=== PATIENT | female | born 1980 ===

== ENCOUNTER 2025-04-13 23:01 | Emergency (ER) | payer MEDICAID, SELFPAY ==
[2025-04-13 23:01] VITALS: BP 141/92; PULSE 67; RESP 13; TEMP 36.5; O2SAT 96; BMI 42.2
--- NOTE | 2025-04-13 23:03 | USR_ITS ---
PROCEDURE INFORMATION: Exam: US Pelvis, Complete, Non-Obstetric Exam date and time: 04/13/2025 11:30 PM Age: 44 years old Clinical indication: Menstruation abnormalities; Excessive menstruation; Other: Heavy vaginal bleeding since onset of lmp TECHNIQUE: Imaging protocol: Transabdominal pelvic nonobstetric ultrasound. Complete exam. Real time ultrasound with image documentation. COMPARISON: No relevant prior studies available. FINDINGS: Uterus: Uterus is enlarged measuring 14.3 x 7.4 x 6.4 cm. Endometrium is thickened and heterogeneous measuring 2.1 cm. Some fluid in the endometrial cavity, potentially blood products. Large fibroid present measuring 8.1 x 4.1 x 4.5 cm abutting the endometrium, part of which may be submucosal, where there is some vascular flow on color Doppler. Right ovary/adnexa: Ovary is 4.7 x 2.8 x 3.3 cm. No mass. 2.5 cm simple cyst. Normal blood flow. No torsion. Left ovary/adnexa: Ovary is 3.2 x 3.4 x 2.3 cm. No mass. Normal blood flow. No torsion. Intraperitoneal space: No intraperitoneal fluid. Urinary bladder: Unremarkable S. US/US pelv w/transvag [id number] IMPRESSION: 1. Very large uterine fibroid measuring 8.1 cm potentially with submucosal component. Additionally, the endometrium is significantly thickened with some fluid, possibly blood products. Nonemergent contrast-enhanced pelvic MRI would be recommended for additional characterization. 2. No evidence of ovarian torsion.
--- NOTE | 2025-04-13 23:12 | W.ED.GENADLT ---
HPI - General Adult General: Chief complaint: Vaginal Bleeding Stated complaint: vaginal bleeding, abnormal labs Time Seen by Provider: 04/13/25 23:03 Source: patient and EMS Mode of arrival: EMS Limitations: no limitations History of Present Illness: 44-year-old female is here from long-term send history of stroke in the past. Patient states she does have heavy menstruation and has had vaginal bleeding over the last 2 days and long-term tushar and labs that showed hemoglobin of 6.6. Patient denies any increased weakness her blood pressure has been normal. She denies any abdominal pains or fevers. Related Data Allergies Allergy/AdvReac Type Severity Reaction Status Date / Time No Known Allergies Allergy Verified 04/13/25 23:11 Review of Systems : Reports: vaginal bleeding Physical Exam Const: COMMON NORMALS: no acute distress, patient oriented x3 and healthy appearing HENMT: COMMON NORMALS: normocephalic and atraumatic HEAD & SCALP: normocephalic and atraumatic Eye: COMMON NORMALS: conjunctivae normal CONJUNCTIVA: Yes conjunctivae normal Neck/C-Spine: COMMON NORMALS: full ROM and supple Chest: COMMONS NORMALS: normal inspection of the chest and normal palpation of entire chest wall Resp: COMMON NORMALS: normal respiratory effort, No retractions, No use of accessory muscles and clear to auscultation bilaterally AUSCULTATION: clear to auscultation bilaterally Cardio: COMMON NORMALS: regular rate, regular rhythm and No murmurs present (Cardio) RATE: regular rate RHYTHM: regular rhythm GI: COMMON NORMALS: Normal to inspection, nondistended, normoactive bowel sounds present, Soft to palpation, non-tender and no masses PALPATION: Yes Soft to palpation Extremity: COMMON NORMALS: normal to inspection Neuro: COMMON NORMALS: patient oriented x3 Psych: COMMON NORMALS: mental status grossly normal, Normal thought process present and cooperative THOUGHT PROCESS: Normal thought process present Skin: COMMON NORMALS: no rashes or lesions noted and no wounds GENERAL SKIN EXAM: no rashes or lesions noted Course Vital Signs: Vital signs: Vital Signs Temperature 98.2 F 04/14/25 00:33 Pulse Rate 69 04/14/25 00:33 Respiratory Rate 18 04/14/25 00:33 Blood Pressure 114/62 04/14/25 00:33 Pulse Oximetry 96 04/14/25 00:33 Oxygen Delivery Me thod Room Air 04/14/25 00:10 MDM - General Adult Medical Decision Making Patient presents here with vaginal bleeding differential includes ectopic , uterine fibroids, heavy menstruation. Patient is anemic here at 6.6 her blood pressures here have been normal likely is chronically anemic she has history of heavy menstrual periods. Her pelvic ultrasound here did show a large uterine fibroid. She has no heavy active bleeding at this time no signs of infection electrolytes showed no significant abnormalities. Patient already has follow-up with OB on the did give her 1 unit of blood here she is stable for discharge back to the long-term and is to follow-up with OB as scheduled. Did go over labs and ultrasound with her and she understands agrees to plan informed long-term if her vitals worsen or bleeding worsens she is to return Medical Records I reviewed the patient's medical records. Lab Data I reviewed the patient's lab results. 04/13/25 23:08 04/13/25 23:08 Radiology Impressions Pelvic/Transvag US 04/13/25 23:03 IMPRESSION: 1. Very large uterine fibroid measuring 8.1 cm potentially with submucosal component. Additionally, the endometrium is significantly thickened with some fluid, possibly blood products. Nonemergent contrast-enhanced pelvic MRI would be recommended for additional characterization. 2. No evidence of ovarian torsion. ADDENDUM: 04/14/25 0045 There is an additional letter S included under the urinary bladder section of the findings. This may have been inadvertently inserted due to ambient noise or report processing error. Laboratory Results WBC 11.37 10^3/uL (3.29-11.43) 04/13/25 23:08 RBC 2.49 10^6/uL (3.85-5.65) L 04/13/25 23:08 Hgb 6.60 g/dL (11.27-16.99) L 04/13/25 23:08 Hct 21.6 % (36-47) L 04/13/25 23:08 MCV 86.7 fl (85-98) 04/13/25 23:08 MCH 26.5 pg (27-33) L 04/13/25 23:08 MCHC 30.6 g/dL (30-55) 04/13/25 23: RDW 14.9 % (12.1-15.1) 04/13/25 23:08 Plt Count 292 10^3/cmm (157-399) 04/13/25 23:08 MPV 10.3 fL (7.4-10.4) 04/13/25 23:08 Neut % (Auto) 69.4 % 04/13/25 23:08 Lymph % (Auto) 19.2 % 04/13/25 23:08 Saunders % (Auto) 7.8 % 04/13/25 23:08 Eos % (Auto) 3.0 % 04/13/25 23:08 Baso % (Auto) 0.2 % 04/13/25 23:08 Neut # (Auto) 7.90 10^3/uL (1.8-7.7) H 04/13/25 23:08 Lymph # (Auto) 2.2 10^3/uL (0.8-4.8) 04/13/25 23:08 Saunders # (Auto) 0.9 10^3/uL (0.2-0.9) 04/13/25 23:08 Eos # (Auto) 0.3 10^3/uL (0.0-0.8) 04/13/25 23:08 Baso # (Auto) 0.0 10^3/uL (0.0-0.1) 04/13/25 23:08 Nucleated RBC % (auto) 0 % 04/13/25 23:08 Nucleated RBCs # 0.0 /100WBC 04/13/25 23:08 PT 13.00 SECONDS (12.1-14.9) 04/13/25 23:08 INR 0.92 (0.8-1.2) 04/13/25 23:08 Sodium 143 mmol/L (136-145) 04/13/25 23:08 Potassium 4.3 mmol/L (3.5-5.1) 04/13/25 23:08 Chloride 107 mmol/L (98-107) 04/13/25 23:08 Carbon Dioxide 26 mmol/L (22-29) 04/13/25 23:08 Anion Gap 14.3 (5-19) 04/13/25 23:08 BUN 27 mg/dL (6-20) H 04/13/25 23:08 Creatinine 1.6 mg/dL (0.5-0.9) H 04/13/25 23:08 GFR Calculation 34.9 mL/min (90-130) L 04/13/25 23:08 Glucose 106 mg/dL (65-115) 04/13/25 23:08 Calculated Osmolality 302 mOsm/kg (285-295) H 04/13/25 23:08 Calcium 8.5 mg/dL (8.5-10.5) 04/13/25 23:08 Total Bilirubin 0.2 mg/dL (0.15-1.2) 04/13/25 23:08 AST 16 U/L (0-32) 04/13/25 23:08 ALT 10 U/L (0-33) 04/13/25 23:08 Alkaline Phosphatase 85 U/L (35-105) 04/13/25 23:08 Total Protein 7.0 g/dL (6.6-8.7) 04/13/25 23:08 Albumin 3.5 g/dL (3.5-5.2) 04/13/25 23:08 Globulin 3.5 g/dL (1.3-4.6) 04/13/25 23:08 HCG, Qual Negative (Negative) 04/13/25 23:08 Blood Type B Positive 04/13/25 23:08 Rho(D) Type Rh positive 04/13/25 23:08 Antibody Screen Negative 04/13/25 23:08 Crossmatch See Detail 04/13/25 23:08 All radiology interpretation(s) finalized by discharge Discharge Plan Discharge Patient Disposition: Home Clinical Impression: Vaginal bleeding, Fibroid, uterine, Anemia Condition: Stable Discharge Orders: Discharge ED (Routine); Ordered 04/14/25 Ordered By: Keara Colmenares Discharge Diet: Advance as tolerated Discharge Activity: Resume usual activity Patient Instructions: Uterine Fibroids (ED) Print Language: Slovenian Coding Level of Care Code ED Media Sales Executive for Cindy Alcocer
[2025-04-13 23:18] LABS: Hematocrit 21.6 % (36-47); Hemoglobin 6.60 g/dL (11.27-16.99); Mean Corpuscular HGB Conc 30.6 g/dL (30-55); Mean Corpuscular Hemoglobin 26.5 pg (27-33); Mean Corpuscular Volume 86.7 fl (85-98); Nucleated Red Blood Cells % 0 %; Platelet Count 292 10^3/cmm (157-399); Red Blood Count 2.49 10^6/uL (3.85-5.65); White Blood Count 11.37 10^3/uL (3.29-11.43)
[2025-04-13 23:29] LABS: HCG, Serum Qual Negative (Negative)
[2025-04-13 23:30] LABS: INR 0.92 (0.8-1.2); Prothrombin Time 13.00 SECONDS (12.1-14.9)
[2025-04-13 23:35] VITALS: BP 121/68; PULSE 74; O2SAT 99
[2025-04-13 23:35] LABS: Alanine Aminotransferase 10 U/L (0-33); Albumin Level 3.5 g/dL (3.5-5.2); Alkaline Phosphatase 85 U/L (35-105); Anion Gap 14.3 (5-19); Aspartate Amino Transferase 16 U/L (0-32); Blood Urea Nitrogen 27 mg/dL (6-20); Calcium 8.5 mg/dL (8.5-10.5); Carbon Dioxide 26 mmol/L (22-29); Chloride 107 mmol/L (98-107); Creatinine Clr Calc Pharmacy 50.4236; Globulin 3.5 g/dL (1.3-4.6); Glucose 106 mg/dL (65-115); Osmolality Calculated 302 mOsm/kg (285-295); Potassium 4.3 mmol/L (3.5-5.1); Sodium 143 mmol/L (136-145); Total Protein 7.0 g/dL (6.6-8.7)
[2025-04-13 23:45] VITALS: BP 121/68; PULSE 70; O2SAT 99
[2025-04-14] VITALS (18 sets, daily range): BP systolic 114–155; BP diastolic 62–87; PULSE 62–77; RESP 12–24; TEMP 36.7–36.8; O2SAT 95–100
== END 2025-04-14 09:40 | disposition home or self-care (01) ==
PROVIDERS: Emergency Provider Emergency Medicine; PCP Student in an Organized Health Care Education/Training Program
DX: N93.9 Abnormal uterine and vaginal bleeding, unspecified (principal); D25.9 Leiomyoma of uterus, unspecified; D64.9 Anemia, unspecified
CPT/HCPCS: 36415; 36430; 76830; 76856; 80053; 84703; 85025; 85610; 86850; 86900; 86920; 99284; P9016

== ENCOUNTER 2025-05-22 05:31 | Inpatient (IN) | payer MEDICAID, SELFPAY ==
[2025-05-22] VITALS (134 sets, daily range): BP systolic 93–175; BP diastolic 54–104; PULSE 38–93; RESP 8–34; TEMP 36.5–37.2; O2SAT 87–100; BMI 38.6
--- OUTSIDE RECORDS SUMMARY | 2025-05-22 05:36 | XMS_ITS | Clinical Summary ---
Author Organization [facility] Address [address] [phone] Phone Care Team Providers Care Cullet Washer Name Role Phone Unavailable Primary Care Provider Unavailabl e Encounters Date Type Department Care Team Description 05/05/2025 External Device Data [facility] ABSTRACTION Provider, Abstract 04/13/2025 12:50 AM CRISIS NURSE - 04/13/2025 11:59 PM CRISIS NURSE Hospital Encounter [facility] Emergency Medical Services [address] [phone] Ambulance, [facility] Discharge Disposition: [facility] 04/07/2025 External Device Data [facility] ABSTRACTION Provider, Abstract 04/07/2025 External Device Data [facility] ABSTRACTION Provider, Abstract 04/07/2025 External Device Data [facility] ABSTRACTION Provider, Abstract 03/29/2025 12:15 AM CDT - 03/29/2025 11:59 PM CDT Hospital Encounter [facility] Emergency Medical Services [address] [phone] [facility] Discharge Disposition: [facility] from Last 3 Months Social History Tobacco Use Types Packs/Day Years Used Date Smoking Tobacco: Never Assessed Comments Unknown Sex and Gender Information Value Date Recorded Sex Assigned at Not on file Legal Sex Female 11:23 AM CDT Gender Identity Not on file Sexual Orientation Not on file Plan of Treatment Health Maintenance Due Date Last Done Comments DTAP/TDAP/TD VACCINES (1 - Tdap) 1998 HEPATITIS B VACCINES (1 of 3 - 19+ 3-dose series) 07/06 HPV/Cotest (21-29) 2000 CERVICAL CANCER SCREENING 2009 HPV/Cotest (30-65) 2009 PAP SMEAR 2009 BREAST CANCER SCREENING 2019 COLORECTAL SCREENING 2024 Colorectal Cancer Screening 2024 FIT-DNA Q 3 years 2024 FIT/FOBT Q 1 year 2024 Flex Sig/CT Colonography Q 5 years 2024 INFLUENZA VACCINE (#1) 2025 HPV VACCINES (No Doses Required) Completed Insurance [place]ICAID [place]
[2025-05-22 06:07] LABS: Hematocrit 21.0 % (36-47); Mean Corpuscular HGB Conc 28.1 g/dL (30-55); Mean Corpuscular Hemoglobin 21.9 pg (27-33); Mean Corpuscular Volume 78.1 fl (85-98); Nucleated Red Blood Cells % 0 %; Platelet Count 283 10^3/cmm (157-399); Red Blood Count 2.69 10^6/uL (3.85-5.65); White Blood Count 10.71 10^3/uL (3.29-11.43)
[2025-05-22 06:10] LABS: Hemoglobin 5.90 g/dL (11.27-16.99)
[2025-05-22 06:22] LABS: Alanine Aminotransferase 12 U/L (0-33); Albumin Level 3.7 g/dL (3.5-5.2); Alkaline Phosphatase 86 U/L (35-105); Anion Gap 15.0 (5-19); Aspartate Amino Transferase 15 U/L (0-32); Blood Urea Nitrogen 25 mg/dL (6-20); Calcium 8.7 mg/dL (8.5-10.5); Carbon Dioxide 24 mmol/L (22-29); Chloride 105 mmol/L (98-107); Globulin 3.3 g/dL (1.3-4.6); Glucose 88 mg/dL (65-115); Osmolality Calculated 294 mOsm/kg (285-295); Potassium 4.0 mmol/L (3.5-5.1); Sodium 140 mmol/L (136-145); Total Protein 7.0 g/dL (6.6-8.7)
--- NOTE | 2025-05-22 06:24 | W.ED.RECABL ---
HPI - Recheck/Abnormal Lab/Rx General: Chief Complaint: Recheck/Abnormal Lab/Rx Stated Complaint: vaginal bleeding Time Seen by Provider: 05/22/25 05:33 History of Present Illness: 44-year-old female presents emergency room with heavy vaginal bleeding. 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 She presents today after having heavy bleeding for last couple days she still having some bleeding. She is previous set of ultrasound that showed a fibroid. 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 (There is comment in the triage nurses note that the patient has cystic fibrosis. There is no physical exam findings to support this story is very known history from the patient. She has a uterine fibroid.) Related Data Home Medications ?Medication ?Instructions ?Recorded ?Confirmed acetaminophen 325 mg tablet 650 mg PO Q6H PRN pain/fever 05/22/25 05/22/25 amlodipine 10 mg tablet 10 mg PO DAILY 05/22/25 05/22/25 bisacodyl 10 mg rectal suppository 10 mg NV DAILY PRN Constipation 05/22/25 05/22/25 carvedilol 25 mg tablet 25 mg PO BID 05/22/25 05/22/25 docusate sodium 100 mg capsule 200 mg PO BID 05/22/25 05/22/25 (Colace) duloxetine 60 mg capsule,delayed 60 mg PO DAILY 05/22/25 05/22/25 release hydralazine 100 mg tablet 100 mg PO TID 05/22/25 05/22/25 hydrochlorothiazide 25 mg tablet 25 mg PO DAILY 05/22/25 05/22/25 losartan 50 mg tablet 50 mg PO BID 05/22/25 05/22/25 magnesium hydroxide 400 mg/5 mL 30 ml PO DAILY PRN Constipation 05/22/25 05/22/25 oral suspension (Milk of Magnesia) oxycodone 5 mg tablet 5 mg PO Q4H PRN Pain 05/22/25 05/22/25 polyethylene glycol 3350 17 17 g PO DAILY PRN Constipation 05/22/25 05/22/25 gram/dose oral powder (Miralax) potassium chloride 20 mEq 20 meq PO DAILY 05/22/25 05/22/25 tablet,extended release(part/cryst) sennosides 8.6 mg tablet (senna) 17.2 mg PO DAILY PRN Constipation 05/22/25 05/22/25 Previous Rx's ?Medication ?Instructions ?Recorded ferrous sulfate 325 mg (65 mg 325 mg PO EVERY OTHER DAY #90 tabs 05/23/25 iron) tablet tranexamic acid 650 mg tablet 650 mg PO Q8H PRN heavy vaginal 05/23/25 bleeding #15 tabs Allergies Allergy/AdvReac Type Severity Reaction Status Date / Time No Known Allergies Allergy Verified 04/13/25 23:11 Review of Systems Const: Denies: fever(s) or chills Card: Denies: chest pain Resp: Denies: dyspnea GI: Denies: abdominal pain : Reports: vaginal bleeding; Denies: dysuria, urinary frequency or urinary urgency Musc: Denies: neck pain or back pain Skin/Breast: Denies: rash PFSH ED PFSH: Medical History HTN (hypertension) Stroke Surgical History H/O brain surgery History of Social History Smoking and tobacco/nicotine status: never used tobacco/nicotine Alcohol intake: former Substance/Drug Use: never Housing: Detention Number of children: 1 Physical Exam Const: GENERAL APPEARANCE: cooperative ORIENTATION/CONSCIOUSNESS: Yes awake, Yes oriented to person, Yes oriented to place and Yes oriented to time HENMT: COMMON NORMALS: normocephalic, atraumatic and hearing grossly normal bilaterally HEAD & SCALP: normocephalic and atraumatic Resp: COMMON NORMALS: normal respiratory effort, No retractions, No use of accessory muscles and clear to auscultation bilaterally AUSCULTATION: clear to auscultation bilaterally Cardio: COMMON NORMALS: regular rate, regular rhythm and No murmurs present (Cardio) RATE: regular rate RHYTHM: regular rhythm GI: COMMON NORMALS: Soft to palpation and No hepatosplenomegaly present AUSCULTATION: Yes normoactive bowel sounds PALPATION: Yes Soft to palpation, No Tenderness to palpation present (GI), No Guarding due to palpation present (GI) and Yes No hepatosplenomegaly present Extremity: COMMON NORMALS: normal to inspection, capillary refill normal, no clubbing, cyanosis or edema, no calf tenderness and no pedal edema Neuro: SENSORIUM/ORIENTATION: Yes oriented to person, Yes oriented to place and Yes oriented to time OTHER: Difficulty with word finding Skin: COMMON NORMALS: no rashes or lesions noted GENERAL SKIN EXAM: no rashes or lesions noted Course Vital Signs: Vital signs: Vital Signs Temperature 98 F 05/23/25 13:00 Pulse Rate 84 05/23/25 13:00 Respiratory Rate 22 H 05/23/25 13:00 Blood Pressure 170/103 05/23/25 13:00 Pulse Oximetry 99 05/23/25 13:00 Oxygen Delivery Me thod Room Air 05/22/25 18:00 MDM - Recheck/Abnormal Lab/Rx Medical Decision Making Medical decision making Social determinants: Patient previously had stroke, now requires alf level of care no family support available in the emergency room I reviewed the patient's medical record. I reviewed the patient's current home meds. Alternate historians: EMS, alf staff Differential diagnosis: Abnormal uterine bleeding. Lab Review: Hemoglobin 5.9. White count 10.7. Creatinine 1 6 BUN 25. UA shows 11-20 red blood cells no signs of infection. Imaging:None done at this ER visit previous pelvic ultrasound done 1110 reviewed showed large uterine fibroid Assessment of risk Level of risk: High Hospitalization considerations: Hospitalization for severe anemia Reexamination: Vital signs stable, overall unchanged Assessment and plan: Uterine fibroid causing significant both chronic and acute blood loss according to history. Per the alf she has been intermittently transfused for the last several months. She has not had gynecology evaluation yet. Will admit to hospital. Have discussed with gynecology and with hospitalist. Patient was given TXA in the ER. We did not give any estrogen due to her history of previous stroke were trying to get the old records to see if we can determine the etiology of her stroke she is unable to tell me. Noted in her medication list she is not on any antiplatelet therapy. Until able to get the old history hold off on any hormone therapies to help control uterine bleeding. Lab Data 05/23/25 04:06 05/23/25 04:06 Laboratory Results WBC 10.71 10^3/uL (3.29-11.43) 05/22/25 05:52 RBC 2.69 10^6/uL (3.85-5.65) L 05/22/25 05:52 Hgb 5.90 g/dL (11.27-16.99) L* 05/22/25 05:52 Hct 21.0 % (36-47) L 05/22/25 05:52 MCV 78.1 fl (85-98) L 05/22/25 05:52 MCH 21.9 pg (27-33) L 05/22/25 05:52 MCHC 28.1 g/dL (30-55) L 05/22/25 05:52 RDW 18.4 % (12.1-15.1) H 05/22/25 05:52 Plt Count 283 10^3/cmm (157-399) 05/22/25 05:52 MPV 11.0 fL (7.4-10.4) H 05/22/25 05:52 Neut % (Auto) 72.1 % 05/22/25 05:52 Lymph % (Auto) 17.3 % 05/22/25 05:52 Woods % (Auto) 6.6 % 05/22/25 05:52 Eos % (Auto) 3.5 % 05/22/25 05:52 Baso % (Auto) 0.3 % 05/22/25 05:52 Neut # (Auto) 7.73 10^3/uL (1.8-7.7) H 05/22/25 05:52 Lymph # (Auto) 1.9 10^3/uL (0.8-4.8) 05/22/25 05:52 Woods # (Auto) 0.7 10^3/uL (0.2-0.9) 05/22/25 05:52 Eos # (Auto) 0.4 10^3/uL (0.0-0.8) 05/22/25 05:52 Baso # (Auto) 0.0 10^3/uL (0.0-0.1) 05/22/25 05:52 Nucleated RBC % (auto) 0 % 05/22/25 05:52 Nucleated RBCs # 0.0 /100WBC 05/22/25 05:52 Sodium 140 mmol/L (136-145) 05/22/25 05:52 Potassium 4.0 mmol/L (3.5-5.1) 05/22/25 05:52 Chloride 105 mmol/L (98-107) 05/22/25 05:52 Carbon Dioxide 24 mmol/L (22-29) 05/22/25 05:52 Anion Gap 15.0 (5-19) 05/22/25 05:52 BUN 25 mg/dL (6-20) H 05/22/25 05:52 Creatinine 1.6 mg/dL (0.5-0.9) H 05/22/25 05:52 GFR Calculation 34.9 mL/min (90-130) L 05/22/25 05:52 Glucose 88 mg/dL (65-115) 05/22/25 05:52 Calculated Osmolality 294 mOsm/kg (285-295) 05/22/25 05:52 Calcium 8.7 mg/dL (8.5-10.5) 05/22/25 05:52 Iron 13 ug/dL (37-145) L 05/22/25 05:52 TIBC 347 mcg/dl 05/22/25 05:52 % Saturation 3.7 % (20-50) L 05/22/25 05:52 Unsat Iron Binding 334 ug/dL (112-347) 05/22/25 05:52 Ferritin 8 ng/mL (15-150) L 05/22/25 05:52 Total Bilirubin 0.2 mg/dL (0.15-1.2) 05/22/25 05:52 AST 15 U/L (0-32) 05/22/25 05:52 ALT 12 U/L (0-33) 05/22/25 05:52 Alkaline Phosphatase 86 U/L (35-105) 05/22/25 05:52 Total Protein 7.0 g/dL (6.6-8.7) 05/22/25 05:52 Albumin 3.7 g/dL (3.5-5.2) 05/22/25 05:52 Globulin 3.3 g/dL (1.3-4.6) 05/22/25 05:52 Urine Color Yellow (Yellow) 05/22/25 06:51 Urine Appearance Clear (CLEAR) 05/22/25 06:51 Urine pH 5.5 (5-7) 05/22/25 06:51 Ur Specific [place] 1.011 (1.005-1.030) 05/22/25 06:51 Urine Protein Negative (Negative) 05/22/25 06:51 Urine Glucose (UA) Negative (Normal) 05/22/25 06:51 Urine Ketones Negative (Negative) 05/22/25 06:51 Urine Blood 1+ (Negative) A 05/22/25 06:51 Urine Nitrate Negative (Negative) 05/22/25 06:51 Urine Bilirubin Negative (Negative) 05/22/25 06:51 Urine Urobilinogen 0.2 mg/dL (Negative) 05/22/25 06:51 Ur Leukocyte Esterase Negative (Negative) 05/22/25 06:51 Urine RBC 11-20 /hpf (0-2) H 05/22/25 06:51 Urine WBC 0-5 /hpf (0-5) 05/22/25 06:51 Ur Squamous Epith Cells 0-5 /hpf (0-5) 05/22/25 06:51 Amorphous Sediment Not Reportable 05/22/25 06:51 Urine Bacteria None seen /hpf (NONE) 05/22/25 06:51 Hyaline Casts 0-4 /lpf H 05/22/25 06:51 Blood Type B Positive 05/22/25 05:52 Rho(D) Type Rh positive 05/22/25 05:52 Antibody Screen Negative 05/22/25 05:52 Crossmatch See Detail 05/22/25 05:52 No radiology studies performed this visit Discharge Plan Discharge Patient Disposition: Admitted As Inpatient Admit Provider: Swati Dominguez Clinical Impression: Acute on chronic blood loss anemia, Uterine fibroid, History of CVA (cerebrovascular accident) Condition: Stable Discharge Diet: Usual diet Discharge Activity: Increase activity as tolerated Coding Level of Care Code ED Psychology Associate for Cindy Alcocer
[2025-05-22] MEDS: tranexamic acid 1,000 MG/100 ML PREMIX 600 MG IV (07:05)
--- NOTE | 2025-05-22 07:06 | PC.NURSE ---
placed pt on cardiac monitoring, educated pt on pending blood admin. denies any further needs at this time.
--- NOTE | 2025-05-22 07:52 | PC.PHAR ---
Pt is from [facility]. Pt was transported prior to morning meds today 05/22/25
[2025-05-22 08:00] LABS: Add Urine Microscopic? YES; Glucose Urine UA Negative (Normal); Nitrate Urine Negative (Negative); Specific Gravity, Urine 1.011 (1.005-1.030)
--- NOTE | 2025-05-22 08:24 | PM.CONSULT ---
Providers/Reason For Consult Consulting Physician/Specialty*: Hospitalist Reason for Consult*: Vaginal bleeding, unknown history of stroke, renal disease Primary Care Provider: Shamar Faith History of Present Illness History of Present Illness Sarah Stiles is a 44 year old female a alf resident, presents with recurrent vaginal bleeding. She reports episodes occurring frequently with intermittent weeks without bleeding; over the last five days the bleeding has been worse. She uses diapers rather than pads and changes frequency depends on whether she can make it to the bathroom due to difficulty walking. She denies taking blood thinners and does not take clopidogrel (Plavix). She reports receiving aspirin from the alf. History notable for a stroke in October with chronic right-sided weakness. She acknowledges a history of high blood pressure and takes daily medications at the alf but cannot recall names. She denies knowing of kidney disease. She reports no medication allergies. She has a cousin, Thuy, as a local contact, while other family lives in [place]. She reports prior section and one living child. She denies smoking, endorses past alcohol use, and denies recreational drug use. She states a gynecology visit occurred and that surgery was discussed for June 08. Review of Systems Const: Denies: fever(s), chills, body aches or malaise ENMT: Denies: throat pain Card: Denies: chest pain, edema, pre-syncope or dyspnea on exertion Resp: Denies: dyspnea, productive cough, change in phlegm color or hemoptysis GI: Denies: abdominal pain, nausea, vomiting, diarrhea, constipation, hematochezia or melena : Reports: vaginal bleeding; Denies: flank pain, urinary frequency or hematuria Musc: Denies: back pain, joint swelling or joint redness Skin/Breast: Denies: rash or new lesions Neuro: Denies: headache(s) or confusion Medications/Allergies Home Medications ?Medication ?Instructions ?Recorded ?Confirmed ?Last Taken ?Type acetaminophen 325 mg tablet 650 mg PO Q6H PRN pain/fever 05/22/25 05/22/25 Unknown History amlodipine 10 mg tablet 10 mg PO DAILY 05/22/25 05/22/25 05/21/25 History bisacodyl 10 mg rectal suppository 10 mg NC DAILY PRN Constipation 05/22/25 05/22/25 Unknown History carvedilol 25 mg tablet 25 mg PO BID 05/22/25 05/22/25 05/21/25 History docusate sodium 100 mg capsule 200 mg PO BID 05/22/25 05/22/25 05/21/25 History (Colace) duloxetine 60 mg capsule,delayed 60 mg PO DAILY 05/22/25 05/22/25 05/21/25 History release hydralazine 100 mg tablet 100 mg PO TID 05/22/25 05/22/25 05/21/25 History hydrochlorothiazide 25 mg tablet 25 mg PO DAILY 05/22/25 05/22/25 05/21/25 History losartan 50 mg tablet 50 mg PO BID 05/22/25 05/22/25 05/21/25 History magnesium hydroxide 400 mg/5 mL 30 ml PO DAILY PRN Constipation 05/22/25 05/22/25 Unknown History oral suspension (Milk of Magnesia) oxycodone 5 mg tablet 5 mg PO Q4H PRN Pain 05/22/25 05/22/25 Unknown History polyethylene glycol 3350 17 17 g PO DAILY PRN Constipation 05/22/25 05/22/25 Unknown History gram/dose oral powder (Miralax) potassium chloride 20 mEq 20 meq PO DAILY 05/22/25 05/22/25 05/21/25 History tablet,extended release(part/cryst) sennosides 8.6 mg tablet (senna) 17.2 mg PO DAILY PRN Constipation 05/22/25 05/22/25 Unknown History Allergies Allergy/AdvReac Type Severity Reaction Status Date / Time No Known Allergies Allergy Verified 04/13/25 23:11 PFSH Acute PFSH: Medical History HTN (hypertension) Stroke Surgical History H/O brain surgery History of Social History (Updated 05/22/25 @ 08:41 by Dionisio Guzman MD) Smoking and tobacco/nicotine status: never used tobacco/nicotine Alcohol intake: former Substance/Drug Use: never Housing: [facility] Number of children: 1 Vitals/I&O/Wt Last Vital Signs Temp 97.8 F 05/22/25 07:53 Pulse 73 05/22/25 07:53 Resp 19 H 05/22/25 07:53 BP 125/77 05/22/25 07:53 Pulse Ox 100 05/22/25 07:53 O2 Del Method Room Air 05/22/25 07:06 05/21/25 05/22/25 05/22/25 22:59 06:59 14:59 Intake Total 100 / 100 Balance 100 / 100 Weight last 48 hrs Weight 102.058 kg Physical Exam Const: COMMON NORMALS: patient oriented x3 and alert GENERAL APPEARANCE: cooperative ORIENTATION/CONSCIOUSNESS: Yes awake HENMT: COMMON NORMALS: oropharynx normal Neck/C-Spine: COMMON NORMALS: no JVD Resp: COMMON NORMALS: normal respiratory effort and clear to auscultation bilaterally AUSCULTATION: clear to auscultation bilaterally Cardio: COMMON NORMALS: no JVD, regular rhythm, S1 normal heart sound present, S2 normal heart sound present and No murmurs present (Cardio) RHYTHM: regular rhythm HEART SOUNDS: S1 normal heart sound present and S2 normal heart sound present GI: COMMON NORMALS: Normal to inspection, nondistended, normoactive bowel sounds present, Soft to palpation and non-tender PALPATION: Yes Soft to palpation Extremity: COMMON NORMALS: no joint enlargement NARRATIVE EXTREMITY EXAM: RLE chronically more swollen Neuro: COMMON NORMALS: patient oriented x3 and moves all extremities SENSORIUM/ORIENTATION: Yes alert OTHER: R side upper and lower weakness Skin: COMMON NORMALS: no rashes or lesions noted GENERAL SKIN EXAM: no rashes or lesions noted Data 05/22/25 05:52 05/22/25 05:52 A&P Assessment and plan 1. Vaginal bleeding: Recurrent bleeding with recent five-day worsening; patient uses diapers. Gynecology has been evaluating her, she states surgery was discussed for June 08. Bleeding in the setting of large uterine fibroid. Reviewed vitals, CBC, UA, ED provider note, discussed with gynecology, ED provider. Receiving 2 units RBC transfusion. Follow-up hemoglobin 2 hours ultrasound transfusion. Monitor for risk of reaction, fluid overload. - Pending gynecology evaluation - No surgery planned during this hospitalization; tentative surgery discussed for June 08 per patient report 2. Fibroid, uterine: Further plans by gynecology with regards to surgical management. 3. Anemia: Acute blood loss anemia. States has been having ongoing bleeding for a while which had let up somewhat for close to about a month, but has gotten particularly bad in the last 5 days. Iron studies. Plan: History of CVA: In context of vaginal bleeding with anemia as above, hold aspirin. Creatinine elevation: Possible CKD, creatinine 1.6, noted 1.6 back in April as well. Reviewed UA. Repeat chemistry. Hypertension : Known history; patient takes daily antihypertensive medication at the alf but cannot recall names. Hold off for now with vaginal bleeding, acute anemia, reassess blood pressure. Will resume antihypertensive depending on blood pressures. PDMP PDMP Reviewed: Not Reviewed and High MDM includes amount and/or complexity of data reviewed/ordered [ previous or external records, resulted lab(s)/test(s), ordered lab(s)/test(s) and other healthcare professional discussion] and described risk of complication, morbidity or mortality of management as documented Diagnoses Vaginal bleeding N93.9 Fibroid, uterine D25.9 Anemia D64.9
--- NOTE | 2025-05-22 09:10 | PC.NURSE ---
report given to SHELLI Freeman @[id number]; Lydia assumed care at this time.
--- NOTE | 2025-05-22 09:30 | PC.NURSE ---
2nd unit of blood to be given on the floor per provider
[2025-05-22 13:46] LABS: Ferritin 8 ng/mL (15-150); Iron 13 ug/dL (37-145); Total Iron Binding Capacity 347 mcg/dl; Unsaturated Iron Binding 334 ug/dL (112-347)
--- NOTE | 2025-05-22 14:09 | PM.OBGYHP ---
Providers/Chief Complaint Admitting Physician: Swati Dominguez MD Primary Care Provider: Shamar Faith Chief Complaint: vaginal bleeding HPI [employer] History of Present Illness Sarah Stiles is a 44 year old female who comes from [facility] with heavy vaginal bleeding. She is difficult historian due to her stroke/memory issues. She reports periods monthly but at some point mostly everyday but can go off for days also. Some things are days ago to years ago, so not sure on timing. But she was here for similar episode a month ago and transfused. Has FITTER HAND in [place] in June. This is late entry, seen ans examined at 1120. Present Details Date of Last Menstrual Period: 05/15/25 Calculated Date of Delivery: 02/19/26 Gestational Age Based on Last Menstrual Period: 1 Review of Systems Narrative: Pertinent positives listed in HPI: Const: Denies: fever(s) or chills Card: Denies: chest pain, palpitations or syncope Resp: Denies: SOB, cough GI: Denies: abdominal pain, nausea or vomiting : Denies: flank pain, dysuria or urinary frequency Musc: Denies: back pain or extremity swelling Skin/Breast: Denies: rash, pruritus or breast pain Neuro: Denies: headache(s) or dizziness Psych: Denies: depression or mood swings Endo: Denies: polyuria, cold or heat intolerance Tha/Lymph: Denies: easy bruising or easy bleeding Medications/Allergies Home Medications ?Medication ?Instructions ?Recorded ?Confirmed ?Last Taken ?Type acetaminophen 325 mg tablet 650 mg PO Q6H PRN pain/fever 05/22/25 05/22/25 Unknown History amlodipine 10 mg tablet 10 mg PO DAILY 05/22/25 05/22/25 05/21/25 History bisacodyl 10 mg rectal suppository 10 mg [place] DAILY PRN Constipation 05/22/25 05/22/25 Unknown History carvedilol 25 mg tablet 25 mg PO BID 05/22/25 05/22/25 05/21/25 History docusate sodium 100 mg capsule 200 mg PO BID 05/22/25 05/22/25 05/21/25 History (Colace) duloxetine 60 mg capsule,delayed 60 mg PO DAILY 05/22/25 05/22/25 05/21/25 History release hydralazine 100 mg tablet 100 mg PO TID 05/22/25 05/22/25 05/21/25 History hydrochlorothiazide 25 mg tablet 25 mg PO DAILY 05/22/25 05/22/25 05/21/25 History losartan 50 mg tablet 50 mg PO BID 05/22/25 05/22/25 05/21/25 History magnesium hydroxide 400 mg/5 mL 30 ml PO DAILY PRN Constipation 05/22/25 05/22/25 Unknown History oral suspension (Milk of Magnesia) oxycodone 5 mg tablet 5 mg PO Q4H PRN Pain 05/22/25 05/22/25 Unknown History polyethylene glycol 3350 17 17 g PO DAILY PRN Constipation 05/22/25 05/22/25 Unknown History gram/dose oral powder (Miralax) potassium chloride 20 mEq 20 meq PO DAILY 05/22/25 05/22/25 05/21/25 History tablet,extended release(part/cryst) sennosides 8.6 mg tablet (senna) 17.2 mg PO DAILY PRN Constipation 05/22/25 05/22/25 Unknown History Allergies Allergy/AdvReac Type Severity Reaction Status Date / Time No Known Allergies Allergy Verified 04/13/25 23:11 PFSH [employer] PFSH: Medical History HTN (hypertension) Stroke Surgical History H/O brain surgery History of Social History (Updated 05/22/25 @ 08:41 by Dionisio Guzman MD) Smoking and tobacco/nicotine status: never used tobacco/nicotine Alcohol intake: former Substance/Drug Use: never Housing: [facility] Number of children: 1 Vitals/I&O/Wt Last Vital Signs Temp 97.9 F 05/22/25 13:40 Pulse 82 05/22/25 13:45 Resp 19 H 05/22/25 13:45 BP 145/92 05/22/25 13:45 Pulse Ox 99 05/22/25 13:45 O2 Del Method Room Air 05/22/25 13:40 05/21/25 05/22/25 05/22/25 22:59 06:59 14:59 Intake Total 450 / 450 Balance 450 / 450 Weight last 48 hrs Weight 248 lb 0.321 oz Weight 225 lb Physical Exam Narrative: Appearance: grossly normal Attitude: calm and engaged, appropriate eye contact Const: no acute distress, oriented x3 cooperative Chest: Symmetrical chest wall rise Resp: normal respiratory effort, clear to auscultation bilaterally Cardio: regular rate and regular rhythm GI: Soft to palpation, Non Tender, no Guarding, no masses : No Uterine tenderness, cervix normal appearing, vagina no masses, urethra normal Extremity: normal inspection, negative for no pedal edema Neuro: oriented x3 and moves all extremities, speech normal Psych: mental status grossly normal, and Normal thought process present Skin: no rashes or lesions noted Data 05/22/25 05:52 05/22/25 05:52 Results Labs OB ([facility]): Blood Type B Positive Today Antibody Screen Negative Today Hct, (36-47) 21.0 % L Today Hgb, (11.27-16.99) 5.90 g/dL L* Today Rho(D) Type Rh positive Today Plt Count, (157-399) 283 10^3/cmm Today HCG, Qual, (Negative) Negative 04/13/25 A&P Assessment and plan 1. Vaginal bleeding: Late entry. Will get office supplies to attempt EMB, was stable and not bleeding but scant when in ER. Goal is transfusion, obtain sample and aid her future surgery which is likely hysterectomy. 2. Fibroid, uterine: 3. Anemia: PDMP PDMP Reviewed: Not Reviewed Attestations Medical Necessity Statement*: Needs stable, not sure how long that will be from transfusuion and bleeding issues. Coding Level of Care Code Acute Code for Chg Fwd Diagnoses Vaginal bleeding N93.9 Fibroid, uterine D25.9 Anemia D64.9
--- NOTE | 2025-05-22 14:32 | PM.ACPR ---
Procedure/Consent Consent: Consent for Procedure: Consent obtained from patient, Risks & Benefits reviewed and Agrees to proceed with procedure Procedure Narrative: Endometrial biopsy. Dr Dominguez, assisted by staff due to CVA paralysis. Speculum placed, cervix seen, 20 cc clot cleared. Pipelle placed sample #1 small, second pass with >10 cm depth, large endometrial sample obtained. Patient tolerated well.
--- NOTE | 2025-05-22 15:46 | PC.NURSE ---
Received patient from ER staff at 1320. Patient is alert. Oriented to person, place, time, and situation. Has a brief on which was checked upon arrival, scant amount of dried speckled blood. Brief removed to allow quicker observation of new bleeding. No active bleeding observed at this time. Report states that patient has right sided paralysis due to previous stroke, but some movement is preserved. Patient is capable of transferring to a bedside commode with minimal 1 person assistance. BP: 126/82 HR: 71 RR: 18 SPO2: 99 Temp 97.9
--- NOTE | 2025-05-22 19:28 | PC.NURSE ---
SHift SUmmary: Uneventful shift. Has received a total of 3 units of blood today. Uterine biopsy taken without complication. Vitals remain within normal limits. No evidence of vaginal bleeding since arrival in ICU.
[2025-05-22 21:30] LABS: Hematocrit 32.7 % (36-47); Hemoglobin 9.60 g/dL (11.27-16.99)
[2025-05-23] VITALS (20 sets, daily range): BP systolic 148–197; BP diastolic 88–122; PULSE 56–84; RESP 15–32; TEMP 36.6; O2SAT 96–100
[2025-05-23 04:44] LABS: Hematocrit 31.7 % (36-47); Hemoglobin 9.60 g/dL (11.27-16.99); Mean Corpuscular HGB Conc 30.3 g/dL (30-55); Mean Corpuscular Hemoglobin 24.4 pg (27-33); Mean Corpuscular Volume 80.7 fl (85-98); Nucleated Red Blood Cells % 0 %; Platelet Count 294 10^3/cmm (157-399); Red Blood Count 3.93 10^6/uL (3.85-5.65); White Blood Count 11.50 10^3/uL (3.29-11.43)
[2025-05-23 05:02] LABS: Blood Urea Nitrogen 20 mg/dL (6-20); Calcium 9.1 mg/dL (8.5-10.5); Carbon Dioxide 25 mmol/L (22-29); Chloride 102 mmol/L (98-107); Glucose 86 mg/dL (65-115); Osmolality Calculated 288 mOsm/kg (285-295); Sodium 138 mmol/L (136-145)
[2025-05-23 05:11] LABS: Anion Gap 14.7 (5-19); Potassium 3.7 mmol/L (3.5-5.1)
--- NOTE | 2025-05-23 08:50 | PM.OBGYDC ---
Discharge Providers PLASTIC SURGEON Date of Admission: 05/22/25 09:10 Date of Discharge: 05/23/25 Attending Provider at Admission: Swati Dominguez MD Attending Provider at Discharge: Swati Dominguez MD Primary Care Provider: Shamar Faith Diagnoses at Discharge Discharge Diagnosis 1. Vaginal bleedin. Fibroid, uterine: 3. Anemia: Reason for Visit Reason for Visit: vaginal bleeding Hospital Course Hospital Course Admitted for heavy vaginal bleeding with fibroid uterus. Her hx of hemorrhagic CVA without known cause led to treatment with TXA that was sucessful. She had 3 units of PRBCs and bleeding was scant to none. An endometrial biopsy was sent. Patient discharged the next day with Rx for TXA for next episode of bleeding. She has an appointment in [place] with LINKING MACHINE OPERATOR in June. Hospitalist service mangaed chronic medical issues. She was in an ICU bed due to lack of bed on med surg unit. Physical Exam Narrative: Appearance: grossly normal Attitude: calm and engaged, appropriate eye contact Const: no acute distress, oriented x3 cooperative Chest: Symmetrical chest wall rise Resp: normal respiratory effort, clear to auscultation bilaterally Cardio: regular rate and regular rhythm GI: Soft to palpation, Non Tender, no Guarding, no masses : No bleeding visiblel Extremity: normal inspection, + pedal edema Psych: mental status grossly normal, and Normal thought process present Skin: no rashes or lesions noted Discharge Data Studies Completed and Pending Pending at discharge Category Date Time Status Basic Metabolic Panel AM LABS Lab 05/24/25 04:00 Ordered Basic Metabolic Panel AM LABS Lab 05/25/25 04:00 Ordered Complete Blood Count w/Auto AM LABS Lab 05/24/25 04:00 Ordered Complete Blood Count w/Auto AM LABS Lab 05/25/25 04:00 Ordered Leukocyte Reduced RBC Stat Lab 05/22/25 05:52 Results Type and Screen Stat Lab 05/22/25 05:52 Results Pathology: Surgical [PTH] Routine Pth 05/22/25 14:34 Received Laboratory Results WBC 11.50 10^3/uL (3.29-11.43) H 05/23/25 04:06 RBC 3.93 10^6/uL (3.85-5.65) 05/23/25 04:06 Hgb 9.60 g/dL (11.27-16.99) L 05/23/25 04:06 Hct 31.7 % (36-47) L 05/23/25 04:06 MCV 80.7 fl (85-98) L 05/23/25 04:06 MCH 24.4 pg (27-33) L D 05/23/25 04:06 MCHC 30.3 g/dL (30-55) D 05/23/25 04:06 RDW 17.8 % (12.1-15.1) H 05/23/25 04:06 Plt Count 294 10^3/cmm (157-399) 05/23/25 04:06 MPV 11.4 fL (7.4-10.4) H 05/23/25 04:06 Neut % (Auto) 73.2 % 05/23/25 04:06 Lymph % (Auto) 17.0 % 05/23/25 04:06 [place] % (Auto) 6.3 % 05/23/25 04:06 Eos % (Auto) 2.9 % 05/23/25 04:06 Baso % (Auto) 0.3 % 05/23/25 04:06 Neut # (Auto) 8.41 10^3/uL (1.8-7.7) H 05/23/25 04:06 Lymph # (Auto) 2.0 10^3/uL (0.8-4.8) 05/23/25 04:06 [place] # (Auto) 0.7 10^3/uL (0.2-0.9) 05/23/25 04:06 Eos # (Auto) 0.3 10^3/uL (0.0-0.8) 05/23/25 04:06 Baso # (Auto) 0.0 10^3/uL (0.0-0.1) 05/23/25 04:06 Nucleated RBC % (auto) 0 % 05/23/25 04:06 Nucleated RBCs # 0.0 /100WBC 05/23/25 04:06 Sodium 138 mmol/L (136-145) 05/23/25 04:06 Potassium 3.7 mmol/L (3.5-5.1) 05/23/25 04:06 Chloride 102 mmol/L (98-107) 05/23/25 04:06 Carbon Dioxide 25 mmol/L (22-29) 05/23/25 04:06 Anion Gap 14.7 (5-19) 05/23/25 04:06 BUN 20 mg/dL (6-20) 05/23/25 04:06 Creatinine 1.6 mg/dL (0.5-0.9) H 05/23/25 04:06 GFR Calculation 34.9 mL/min (90-130) L 05/23/25 04:06 Glucose 86 mg/dL (65-115) 05/23/25 04:06 Calculated Osmolality 288 mOsm/kg (285-295) 05/23/25 04:06 Calcium 9.1 mg/dL (8.5-10.5) 05/23/25 04:06 Iron 13 ug/dL (37-145) L 05/22/25 05:52 TIBC 347 mcg/dl 05/22/25 05:52 % Saturation 3.7 % (20-50) L 05/22/25 05:52 Unsat Iron Binding 334 ug/dL (112-347) 05/22/25 05:52 Ferritin 8 ng/mL (15-150) L 05/22/25 05:52 Total Bilirubin 0.2 mg/dL (0.15-1.2) 05/22/25 05:52 AST 15 U/L (0-32) 05/22/25 05:52 ALT 12 U/L (0-33) 05/22/25 05:52 Alkaline Phosphatase 86 U/L (35-105) 05/22/25 05:52 Total Protein 7.0 g/dL (6.6-8.7) 05/22/25 05:52 Albumin 3.7 g/dL (3.5-5.2) 05/22/25 05:52 Globulin 3.3 g/dL (1.3-4.6) 05/22/25 05:52 Urine Color Yellow (Yellow) 05/22/25 06:51 Urine Appearance Clear (CLEAR) 05/22/25 06:51 Urine pH 5.5 (5-7) 05/22/25 06:51 Ur Specific [place] 1.011 (1.005-1.030) 05/22/25 06:51 Urine Protein Negative (Negative) 05/22/25 06:51 Urine Glucose (UA) Negative (Normal) 05/22/25 06:51 Urine Ketones Negative (Negative) 05/22/25 06:51 Urine Blood 1+ (Negative) A 05/22/25 06:51 Urine Nitrate Negative (Negative) 05/22/25 06:51 Urine Bilirubin Negative (Negative) 05/22/25 06:51 Urine Urobilinogen 0.2 mg/dL (Negative) 05/22/25 06:51 Ur Leukocyte Esterase Negative (Negative) 05/22/25 06:51 Urine RBC 11-20 /hpf (0-2) H 05/22/25 06:51 Urine WBC 0-5 /hpf (0-5) 05/22/25 06:51 Ur Squamous Epith Cells 0-5 /hpf (0-5) 05/22/25 06:51 Amorphous Sediment Not Reportable 05/22/25 06:51 Urine Bacteria None seen /hpf (NONE) 05/22/25 06:51 Hyaline Casts 0-4 /lpf H 05/22/25 06:51 Blood Type B Positive 05/22/25 05:52 Rho(D) Type Rh positive 05/22/25 05:52 Antibody Screen Negative 05/22/25 05:52 Crossmatch See Detail 05/22/25 05:52 Vitals Last Vital Signs Temp 97.9 F 05/22/25 18:00 Pulse 65 05/23/25 04:30 Resp 21 H 05/23/25 04:30 BP 150/104 05/23/25 04:30 Pulse Ox 98 05/23/25 04:30 O2 Del Method Room Air 05/22/25 18:00 Results Labs OB ([facility]): Blood Type B Positive 05/22/25 Antibody Screen Negative 05/22/25 Hct, (36-47) 31.7 % L Today Hgb, (11.27-16.99) 9.60 g/dL L Today Rho(D) Type Rh positive 05/22/25 Plt Count, (157-399) 294 10^3/cmm Today HCG, Qual, (Negative) Negative 04/13/25 Discharge Plan Discharge Patient Disposition: Home Condition: Stable Prescriptions: New tranexamic acid 650 mg tablet 650 mg PO Q8H PRN (Reason: heavy vaginal bleeding) Qty: 15 0RF Rx Instructions: Give if patient has heavy menses. Continued losartan 50 mg tablet 50 mg PO BID carvedilol 25 mg tablet 25 mg PO BID sennosides [senna] 8.6 mg Tablet 17.2 mg PO DAILY PRN (Reason: Constipation) acetaminophen 325 mg Tablet 650 mg PO Q6H PRN (Reason: pain/fever) potassium chloride 20 mEq tablet,ER particles/crystals 20 meq PO DAILY magnesium hydroxide [Milk of Magnesia] 400 mg/5 mL Suspension 30 ml PO DAILY PRN (Reason: Constipation) amlodipine 10 mg tablet 10 mg PO DAILY bisacodyl 10 mg Suppository 10 mg SD DAILY PRN (Reason: Constipation) hydralazine 100 mg tablet 100 mg PO TID docusate sodium [Colace] 100 mg Capsule 200 mg PO BID hydrochlorothiazide 25 mg tablet 25 mg PO DAILY polyethylene glycol 3350 [Miralax] 17 gram/dose Powder 17 g PO DAILY PRN (Reason: Constipation) oxycodone 5 mg Tablet 5 mg PO Q4H PRN (Reason: Pain) duloxetine 60 mg capsule,delayed release(DR/EC) 60 mg PO DAILY Discharge Order = DC NOW: Discharge Order (Routine); Ordered 05/23/25 Ordered By: Hansel Ann Referrals: Shamar Faith [Primary Care Provider, Internal Medicine] Discharge Diet: Usual diet Discharge Activity: Increase activity as tolerated Patient Instructions: Opioid Safety, Patient Portal & Aletha Instructions Activity Restrictions/Additional Instructions: Follow up with LINKING MACHINE OPERATOR as scheduled in [place] Discharge Attestations PLASTIC SURGEON Time Spent in Discharge Care*: less than 30 min Coding Level of Care Code Acute Code for Chg Fwd Diagnoses Vaginal bleeding N93.9 Fibroid, uterine D25.9 Anemia D64.9
--- NOTE | 2025-05-23 11:18 | P.PN_ITS ---
Subjective 2 Subjective: Denies any new symptoms today. Not in pain or discomfort and states she is doing all right. Vitals/I&O/Wt Last Vital Signs Temp 97.9 F 05/22/25 18:00 Pulse 72 05/23/25 10:00 Resp 23 H 05/23/25 10:00 BP 172/122 05/23/25 10:00 Pulse Ox 96 05/23/25 08:00 O2 Del Method Room Air 05/22/25 18:00 05/22/25 05/23/25 05/23/25 22:59 06:59 14:59 Intake Total 1000 / 1800 240 / 2040 480 / 480 Output Total 500 / 500 Balance 500 / 1300 240 / 1540 480 / 480 Weight last 48 hrs Weight 117.5 kg Weight 112.5 kg Weight 102.058 kg Physical Exam 2 Const: COMMON NORMALS: patient oriented x3 and alert GENERAL APPEARANCE: c ooperative ORIENTATION/CONSCIOUSNESS: Yes awake HENMT: COMMON NORMALS: oropharynx normal Neck/C-Spine: COMMON NORMALS: no JVD Resp: COMMON NORMALS: normal respiratory effort and clear to auscultation bilaterally AUSCULTATION: clear to auscultation bilaterally Cardio: COMMON NORMALS: no JVD, regular rhythm, S1 normal heart sound present, S2 normal heart sound present and No murmurs present (Cardio) RHYTHM: regular rhythm HEART SOUNDS: S1 normal heart sound present and S2 normal heart sound present GI: COMMON NORMALS: Normal to inspection, nondistended, normoactive bowel sounds present, Soft to palpation and non-tender PALPATION: Yes Soft to palpation Extremity: COMMON NORMALS: no joint enlargement NARRATIVE EXTREMITY EXAM: RLE chronically more swollen Neuro: COMMON NORMALS: patient oriented x3 and moves all extremities S ENSORIUM/ORIENTATION: Yes alert OTHER: R side upper and lower weakness Skin: COMMON NORMALS: no rashes or lesions noted GENERAL SKIN EXAM: no rashes or lesions noted Data 05/23/25 04:06 05/23/25 04:06 A&P Assessment and plan 1. Vaginal bleeding: Reviewed gynecology note, underwent biopsy. Discharging per gynecology to follow-up as outpatient. She reports she takes aspirin 500 mg for aches and pains. Discussed with her to discontinue this due to blood loss anemia. Recurrent bleeding with recent five-day worsening; patient uses diapers. Gynecology has been evaluating her, she states surgery was discussed for June 08. Bleeding in the setting of large uterine fibroid. Received 2 units RBC transfusion. 2. Fibroid, uterine: Further plans by gynecology with regards to surgical management. 3. Anemia: Acute blood loss anemia. States has been having ongoing bleeding for a while which had let up somewhat for close to about a month, but has gotten particularly bad in the last 5 days. Iron deficiency anemia - iron supplementation. Plan: History of CVA: She reports aspirin she takes is 500 mg strength for aches and pains. Discussed to discontinue. She states had history of hemorrhagic stroke, but she will confirm with her primary provider. Creatinine elevation: Follow-up CKD with primary provider. Hypertension : Resume home medications. PDMP PDMP Reviewed: Not Reviewed Attestations 2 Medical Necessity Statement*: Returning to nursing facility. and High MDM includes amount and/or complexity of data reviewed/ordered [ previous or external records, resulted lab(s)/test(s), ordered lab(s)/test(s) and other healthcare professional discussion] as documented Diagnoses Vaginal bleeding N93.9 Fibroid, uterine D25.9 Anemia D64.9
--- NOTE | 2025-05-23 12:11 | PC.NURSE ---
report called to heather at [facility] for discharge transport called
== END 2025-05-23 13:00 | disposition intermediate care facility (04) | DRG 952 ==
LOC: ER 06:25 → ICU 12:56
PROVIDERS: Internal Medicine; Admitting Provider Obstetrics & Gynecology; Emergency Provider Family Medicine; PCP Student in an Organized Health Care Education/Training Program; Visit Provider Obstetrics & Gynecology
DX: D62 Acute posthemorrhagic anemia (principal); D25.9 Leiomyoma of uterus, unspecified; N93.9 Abnormal uterine and vaginal bleeding, unspecified; D50.9 Iron deficiency anemia, unspecified; R94.4 Abnormal results of kidney function studies; I69.2 Sequelae of other nontraumatic intracranial hemorrhage; I10 Essential (primary) hypertension; Z79.82 Long term (current) use of aspirin
CPT/HCPCS: 36415; 36430; 80048; 80053; 81001; 82728; 83540; 83550; 85014; 85018; 85025; 86850; 86900; 86920; 88305; 99285; J9999; P9016; P9040